=== PATIENT | male | born 1975 | race Caucasian/White ===

== ENCOUNTER 2020-02-09 12:21 | Emergency (ER) | payer OTHER, SELFPAY ==
[2020-02-09 12:31] VITALS: BP 134/98; PULSE 72; RESP 20; TEMP 36.6; O2SAT 100
--- NOTE | 2020-02-09 12:31 | ED.URI ---
HPI - URI/Sore Throat General Chief Complaint: Upper Respiratory Infection Stated Complaint: sore throat/cough Time Seen by Provider: 02/09/20 12:31 Source: patient and RN notes reviewed Mode of arrival: ambulatory Limitations: no limitations History of Present Illness HPI Narrative: 44-year-old male who presents to [facility] care with complaints of sore throat since Monday and cough which developed 2 days ago. Patient states that he just returned from [place] where he had been on vacation, no one else in household is ill. Patient states that his throat is very sore rates his pin as 10/10 describes pain as aching and burning.He states that his cough is non productive at this time, no acute sinus drainage or any ear pain voiced. Patient states that he has been taking Ibuprofen for his symptoms with minimal relief, no known fever chills or sweats. and cough MD elicited complaint: cough and sore throat Onset (ago): day(s) (6) Consistency: progressively worsening Severity: severe Pain scale (0-10): 10 Able to tolerate fluids by mouth: Yes Exacerbating factors: swallowing Relieving factors: nothing Associated symptoms: sore throat and cough Treatments prior to arrival: ibuprofen Related Data Home Medications Medication Instructions Recorded Confirmed clonazepam 1 mg tablet 1 mg PO DAILY 07/15/19 02/09/20 omeprazole 20 mg capsule,delayed 20 mg PO DAILY 07/15/19 02/09/20 release sertraline 100 mg tablet 100 mg PO DAILY 07/15/19 02/09/20 Allergies Allergy/AdvReac Type Severity Reaction Status Date / Time Penicillins Allergy Mild Verified 06/03/19 07:48 Review of Systems Review of Systems: Narrative: CONSTITUTIONAL: Denies fever, chills, or sweats. EYES: Denies visual changes, redness, or discharge. ENT: Denies rhinorrhea, congestion,positive sore throat, or otalgia. CARDIOVASCULAR: Denies chest pain, palpitations, or edema. RESPIRATORY: Positive cough no dyspnea. GASTROINTESTINAL: Denies abdominal pain, nausea, vomiting, or diarrhea. GENITOURINARY: Denies dysuria or hematuria. SKIN: Denies rash or itching. MUSCULOSKELETAL: Denies back pain, joint pain, or myalgia. NEUROLOGIC: Denies headache, numbness, or weakness. PSYCHIATRIC:positive anxiety or depression. All systems reviewed & are unremarkable except as noted in HPI and below PMFSH Past Medical History Medical History (Updated 02/09/20 @ 13:13 by Janae Pritchett NP) Essential hypertension Mixed hyperlipidemia Myocardial infarction Obesity Recurrent major depressive episodes, mild Sleep disorder Surgical History Surgical History (Updated 02/09/20 @ 13:14 by Janae Pritchett NP) History of elbow surgery History of hip replacement Family History Family History Sibling Hypertension Father Cerebrovascular accident Mother Family history of malignant neoplasm of ovary, Onset Age: 58 Other Diabetes mellitus Family history of arthritis Family history of heart disease in male family member before age 55 Family history of malignant neoplasm Social History Social History (Updated 02/09/20 @ 12:34 by Janae Pritchett NP) Smoking status: Never smoker Smokeless tobacco user: chewing tobacco Second hand tobacco smoke exposure: No Alcohol intake: current Living arrangements: with family Gender identity (if verbalized by the patient): Male Comments At time of signature, agree with nursing past medical, surgical, social and family history. There is no relevant family history pertinent to the presenting complaint Exam Narrative: Exam Narrative: GENERAL: Well-appearing, well-nourished, and in no acute distress. HEAD: Normocephalic, atraumatic. EYES: PERRLA and EOMI. ENT: Nares red with swollen turbinates, clear rhinorrhea no epistaxis. Mucous membranes moist.TM's with no redness, with good light reflex, throat red painful with no exudates but swollen tonsils NECK: Supple.mild lympha
== END 2020-02-09 13:12 | disposition home or self-care (01) ==
PROVIDERS: Emergency Provider Registered Nurse; PCP Internal Medicine
DX: J03.90 Acute tonsillitis, unspecified (principal); J06.9 Acute upper respiratory infection, unspecified; Z20.828 Contact with and (suspected) exposure to other viral communicable diseases; F17.220 Nicotine dependence, chewing tobacco, uncomplicated; I10 Essential (primary) hypertension; E78.2 Mixed hyperlipidemia; I25.2 Old myocardial infarction; F32.0 Major depressive disorder, single episode, mild
CPT/HCPCS: 87081; 87880; 99213; G0463

== ENCOUNTER 2021-06-28 10:28 | Emergency (ER) | payer OTHER, SELFPAY ==
[2021-06-28 10:41] VITALS: BP 142/87; PULSE 80; RESP 16; TEMP 36.3; O2SAT 99
--- NOTE | 2021-06-28 11:16 | ED.URI ---
HPI - URI/Sore Throat General Chief Complaint: Upper Respiratory Infection Stated Complaint: sinus/sore throat Time Seen by Provider: 06/28/21 11:15 Source: patient, RN notes reviewed and old records reviewed Mode of arrival: ambulatory Limitations: no limitations History of Present Illness HPI Narrative: 45-year-old male who presents to [facility] with complaints of having terrible sore throat for the past 5 days with some discomfort to his left ear. Patient states that he has tried multiple OTC medications including Tylenol cold and sinus, Ibuprofen, throat spray, and cough drops. Patient reports that he has not had any known fevers, chills or sweats or any body aches. Patient has not had COVID vaccinations. MD elicited complaint: sore throat, rhinorrhea and other (left ear pain) Pertinent past history: seasonal allergies and other (sinus problems) Onset (ago): day(s) (5) Consistency: progressively worsening Related Data Home Medications Medication Instructions Recorded Confirmed aspirin 81 mg tablet,delayed 81 mg PO DAILY 01/11/21 06/28/21 release metoprolol succinate 50 mg PO DAILY 06/28/21 06/28/21 Allergies Allergy/AdvReac Type Severity Reaction Status Date / Time Penicillins Allergy Mild RASH Verified 01/11/21 13:26 Review of Systems Review of Systems: CONSTITUTIONAL: Denies fever, chills, or sweats. EYES: Denies visual changes, redness, or discharge. ENT: Positive for rhinorrhea, congestion, sore throat, left otalgia. CARDIOVASCULAR: Denies chest pain, palpitations, or edema. RESPIRATORY: Denies acute cough or dyspnea. GASTROINTESTINAL: Denies abdominal pain, nausea, vomiting, or diarrhea. GENITOURINARY: Denies dysuria or hematuria. SKIN: Denies rash or itching. MUSCULOSKELETAL: Denies back pain, joint pain, or myalgia. NEUROLOGIC: Denies headache, numbness, or weakness. PSYCHIATRIC: Positive history of anxiety or depression. All systems reviewed & are unremarkable except as noted in HPI and below PMFSH Past Medical History Medical History (Updated 06/28/21 @ 11:39 by Janae Pritchett NP) Essential hypertension Mixed hyperlipidemia Myocardial infarction Obesity Recurrent major depressive episodes, mild Sleep disorder Surgical History Surgical History (Updated 06/28/21 @ 15:39 by Janae L. Shreyas, [employer]) History of elbow surgery History of hip replacement bilateral Family History Family History Sibling Hypertension Diabetes mellitus Depression Father Cerebrovascular accident Heart disease Mother Family history of malignant neoplasm of ovary, Onset Age: 58 Hypertension Other Family history of arthritis Family history of heart disease in male family member before age 55 Family history of malignant neoplasm Social History Social History Smoking status: Never smoker Smokeless tobacco user: chewing tobacco Second hand tobacco smoke exposure: No Alcohol intake: current Substance use: current Gender identity (if verbalized by the patient): Male Comments At time of signature, agree with nursing past medical, surgical, social and family history. There is no relevant family history pertinent to the presenting complaint Exam Narrative: GENERAL: Well-appearing, well-nourished, obese and in no acute distress. HEAD: Normocephalic, atraumatic. EYES: PERRLA and EOMI. ENT: Nares redness with clear rhinorrhea no epistaxis. Mucous membranes moist.Right TM normal with good light reflex, Left TM red and bulging. throat red, no lesions or exudates, tonsils red and swollen NECK: Supple. lymphadenopathy CHEST: Clear to auscultation. No respiratory distress.SAO2 99% on room air HEART: Regular rate and rhythm. No murmur heard. Normal peripheral pulses. ABDOMEN: Soft, nontender, nondistended, normal active bowel sounds. EXTREMITIES: Normal range of motion. No edema. SKIN:
== END 2021-06-28 11:42 | disposition home or self-care (01) ==
PROVIDERS: Emergency Provider Registered Nurse; PCP Internal Medicine
DX: J03.90 Acute tonsillitis, unspecified (principal); H65.02 Acute serous otitis media, left ear; I10 Essential (primary) hypertension; E78.2 Mixed hyperlipidemia; I25.2 Old myocardial infarction
CPT/HCPCS: 87081; 87880; 99213; G0463

== ENCOUNTER 2021-08-29 09:32 | Emergency (ER) | payer OTHER, SELFPAY ==
[2021-08-29 09:41] VITALS: BP 139/74; PULSE 68; RESP 16; TEMP 37; O2SAT 99
--- NOTE | 2021-08-29 09:58 | ED.URI ---
HPI - URI/Sore Throat General Chief Complaint: Upper Respiratory Infection Stated Complaint: Sinus Time Seen by Provider: 08/29/21 09:58 Source: patient, family, RN notes reviewed and old records reviewed Mode of arrival: ambulatory Limitations: no limitations History of Present Illness HPI Narrative: 45-year-old male presents to the [facility] with complaints of sinus issues since Monday, 4 days. States that he works from home. Denies fevers. States he just feels miserable. Related Data Home Medications Medication Instructions Recorded Confirmed aspirin 81 mg tablet,delayed 81 mg PO DAILY 01/11/21 06/28/21 release metoprolol succinate 50 mg PO DAILY 06/28/21 06/28/21 Allergies Allergy/AdvReac Type Severity Reaction Status Date / Time Penicillins Allergy Mild RASH Verified 01/11/21 13:26 Review of Systems Review of Systems: All systems reviewed & are unremarkable except as noted in HPI and below Constitutional: Constitutional: Reports no additional constitutional complaints, Denies chills, Denies fever(s) and Denies headache(s) Eyes: Eyes: Reports as per HPI Comments: Right eye redness and tearing ENT: Reports as per HPI, Denies vertigo, Denies dizziness, Denies headache(s), Reports nasal congestion and Reports sore throat Cardiovascular: Cardiovascular: Reports no additional cardiovascular complaints, Denies chest pain, Denies syncope, Denies rapid heart rate and Denies dyspnea Respiratory: Respiratory: Reports no additional respiratory complaints, Denies cough, Denies dyspnea and Denies wheezing Gastrointestinal: Gastrointestinal: Reports no additional gastrointestinal complaints, Denies abdominal pain, Denies diarrhea, Denies nausea and Denies vomiting Musculoskeletal: Musculoskeletal: Reports no additional musculoskeletal complaints and Denies numbness Integumentary/Breasts: Skin/Breast: Reports system reviewed and no additional complaints, except as docu Neurologic: Reports system reviewed and no additional complaints, except as documented, Denies vertigo, Denies dizziness, Denies syncope, Denies headache(s), Denies focal weakness and Denies numbness Psychiatric: Psychiatric: Reports no additional psychiatric complaints Allergic/Immunologic: Allergic/Immunologic: Reports no additional allergic/immunologic complaints and Denies wheezing PMFSH Past Medical History Medical History (Updated 08/29/21 @ 10:26 by Marly Prather) Essential hypertension Mixed hyperlipidemia Myocardial infarction Obesity Recurrent major depressive episodes, mild Sleep disorder Surgical History Surgical History History of elbow surgery History of hip replacement bilateral Family History Family History Sibling Hypertension Diabetes mellitus Depression Father Cerebrovascular accident Heart disease Mother Family history of malignant neoplasm of ovary, Onset Age: 58 Hypertension Other Family history of arthritis Family history of heart disease in male family member before age 55 Family history of malignant neoplasm Social History Social History Smoking status: Never smoker Smokeless tobacco user: chewing tobacco Second hand tobacco smoke exposure: No Alcohol intake: current Substance use: current Gender identity (if verbalized by the patient): Male Comments At the time of my signature, I reviewed and agree with the nursing past medical, surgical, social, and family history. There is no relevant family history pertinent to the patient complaint. Exam Const: General: cooperative, healthy appearing, no acute distress, well developed, alert and ill appearing acutely (mild) Nutritional Appearance: well nourished Orientation/consciousness: patient oriented x3 Limitations: no limitations HENMT: Head: normal to inspection Ears: external ears
[2021-08-30 18:01] LABS: SARS-CoV-2 RNA PCR Negative
== END 2021-08-29 10:39 | disposition home or self-care (01) ==
PROVIDERS: Emergency Provider Nurse Practitioner; PCP Internal Medicine
DX: K12.2 Cellulitis and abscess of mouth (principal); Z20.822 Contact with and (suspected) exposure to COVID-19; F17.220 Nicotine dependence, chewing tobacco, uncomplicated; I10 Essential (primary) hypertension; E78.2 Mixed hyperlipidemia; I25.2 Old myocardial infarction; E66.9 Obesity, unspecified; Z68.33 Body mass index [BMI] 33.0-33.9, adult; Z79.82 Long term (current) use of aspirin
CPT/HCPCS: 87081; 87804; 87880; 99213; C9803; G0463; U0003; U0005

== ENCOUNTER → 2021-10-26 00:25 | Outpatient (CLI) | payer OTHER, SELFPAY ==
[2021-10-26 11:28] LABS: SARS-CoV-2 RNA PCR Negative
== END ==
PROVIDERS: PCP Family Medicine; Visit Provider Internal Medicine Gastroenterology
DX: Z01.812 Encounter for preprocedural laboratory examination (principal); Z20.822 Contact with and (suspected) exposure to COVID-19
CPT/HCPCS: C9803; U0003; U0005

== ENCOUNTER 2021-10-29 01:17 | Day surgery (SDC) | payer OTHER, SELFPAY ==
[2021-10-18 15:32] VITALS: BMI 33.0
--- NOTE | 2021-10-29 07:23 | PM.HPGS ---
History of Present Illness History of Present Illness Consent: Risks, benefits, and alternatives have been discussed and questions answered. Patient agrees to proceed with procedure. Chief complaint: epigastric pain Narrative: Curt Avalos is a 45 year old male With postprandial discomfort in the upper left abdomen. He also has pain in his chest. This often happens after meal. He has in the past been to the emergency room with chest pain. On w 1 or 2 occasions the GI cocktail gave him a significant amount of relief. He has been on Prilosec but this has not helped significantly. he feels very bloated and distended after meal. He does belch some but not a lot. He does not use a CPAP machine. When he is distended, he feels discomfort along the left costal margin and laterally. Review of Systems Review of Systems: All systems reviewed & are unremarkable except as noted in HPI and below PMFSH Past Medical History Medical History Essential hypertension Mixed hyperlipidemia Myocardial infarction Obesity Recurrent major depressive episodes, mild Sleep disorder Surgical History Surgical History History of elbow surgery History of hip replacement bilateral Family History Family History Sibling Hypertension Diabetes mellitus Depression Father Cerebrovascular accident Heart disease Mother Family history of malignant neoplasm of ovary, Onset Age: 58 Hypertension Other Family history of arthritis Family history of heart disease in male family member before age 55 Family history of malignant neoplasm Social History Social History Smoking status: Never smoker Smokeless tobacco user: chewing tobacco Second hand tobacco smoke exposure: No Alcohol intake: current Drinks per week: 3 Substance use: current Living arrangements: with family Gender identity (if verbalized by the patient): Male Spiritual care concerns: No Meds Home Medications and Allergies Home Medications Medication Instructions Recorded Confirmed Type aspirin 81 mg tablet,delayed 81 mg PO DAILY 01/11/21 10/29/21 History release sertraline 100 mg tablet See Rx Instructions .ROUTE 09/02/21 10/29/21 Rx .COMPLEX #90 each atorvastatin 20 mg tablet 20 mg PO DAILY #90 tablet 09/03/21 10/29/21 Rx fenofibrate nanocrystallized 145 145 mg PO DAILY #90 tablet 09/03/21 10/29/21 Rx mg tablet metoprolol succinate 50 mg 50 mg PO DAILY #90 tablet 09/03/21 10/29/21 Rx tablet,extended release 24 hr Allergies Allergy/AdvReac Type Severity Reaction Status Date / Time Penicillins Allergy Mild RASH Verified 10/29/21 09:25 Exam Const: General: alert Orientation/consciousness: patient oriented x3 Resp: Auscultation: clear to auscultation bilaterally Cardio: Rhythm: regular rhythm GI: GI Palp: Yes Soft to palpation and No Tenderness to palpation present (GI) Neuro: General: patient oriented x3 Assessment and Plan Assessment and plan (1) Epigastric pain: Code(s): R10.13 - Epigastric pain Status: Acute Assessment and Plan: EGD with possible biopsy or dilatation or cautery.
[2021-10-29 09:26] VITALS: BP 154/90; PULSE 89; RESP 17; TEMP 36.6; O2SAT 98; BMI 33.7
[2021-10-29] MEDS: LACTATED RINGERS 1,000 ML 150 ML IV CONT (09:28)
--- NOTE | 2021-10-29 10:17 | WPDANESEPPF ---
Anes - Initial Pre Proc Eval Procedure: Operation Date: 10/29/21 10:30 Proposed Procedures p Esophagogastroduodenoscopy - Tommy Fletcher MD Date/Time: 10/29/21 10:17 Surgeon: Tommy Fletcher MD Pre Op Diagnosis: epigastric pain Patient Data Age: 45 Gender: M Height: 1.93 m Weight: 125.7 kg Last Vital Signs Temp 36.6 C 10/29/21 09:26 Pulse 89 10/29/21 09:26 Resp 17 10/29/21 09:26 BP 154/90 H 10/29/21 09:26 Pulse Ox 98 10/29/21 09:26 Allergies Allergy/AdvReac Type Severity Reaction Status Date / Time Penicillins Allergy Mild RASH Verified 10/29/21 09:25 Home Medications Medication Instructions Recorded Confirmed Type aspirin 81 mg tablet,delayed 81 mg PO DAILY 01/11/21 10/29/21 History release sertraline 100 mg tablet See Rx Instructions .ROUTE 09/02/21 10/29/21 Rx .COMPLEX #90 each atorvastatin 20 mg tablet 20 mg PO DAILY #90 tablet 09/03/21 10/29/21 Rx fenofibrate nanocrystallized 145 145 mg PO DAILY #90 tablet 09/03/21 10/29/21 Rx mg tablet metoprolol succinate 50 mg 50 mg PO DAILY #90 tablet 09/03/21 10/29/21 Rx tablet,extended release 24 hr Patient hx anesthesia problems: none Family hx anesthesia problems: none Results Review: All pre-operative results and documents have been reviewed as part of the pre-operative evaluation. [facility] Past Medical History Medical History Essential hypertension Mixed hyperlipidemia Myocardial infarction Obesity Recurrent major depressive episodes, mild Sleep disorder Surgical History Surgical History History of elbow surgery History of hip replacement bilateral Family History Family History Sibling Hypertension Diabetes mellitus Depression Father Cerebrovascular accident Heart disease Mother Family history of malignant neoplasm of ovary, Onset Age: 58 Hypertension Other Family history of arthritis Family history of heart disease in male family member before age 55 Family history of malignant neoplasm Social History Social History Smoking status: Never smoker Smokeless tobacco user: chewing tobacco Second hand tobacco smoke exposure: No Alcohol intake: current Drinks per week: 3 Substance use: current Living arrangements: with family Gender identity (if verbalized by the patient): Male Spiritual care concerns: No Anes - Eval Final PreProcedure Day of Procedure 10/29/21 10:17 Patient weight: obese Heart: regular rate and rhythm Lungs: clear to auscultation Airway: Mallampati scale class II Neurological: alert and oriented Last oral intake: >/= 8 hours ASA classification: III Emergent: no Anesthetic plan: proceed Anesthesia type and monitoring: general GIVS and standard monitoring Results Review: All pre-operative results and documents have been reviewed as part of the pre-operative evaluation. Informed Consent: The patient's anesthetic plan and its attendant risks and benefits were discussed with the patient/family/POA. Questions were solicited and answers provided to the satisfaction of the patient/family/POA.
[2021-10-29 11:12] VITALS: BP 112/62; PULSE 66; RESP 27; O2SAT 98
[2021-10-29 11:22] VITALS: BP 111/60; PULSE 58; RESP 22; O2SAT 99
[2021-10-29 11:32] VITALS: BP 101/55; PULSE 58; RESP 20; O2SAT 99
== END 2021-10-29 11:40 | disposition home or self-care (01) ==
PROVIDERS: PCP Family Medicine; Visit Provider Internal Medicine Gastroenterology
PROC: 0DJ08ZZ Inspection of Upper Intestinal Tract, Via Natural or Artificial Opening Endoscopic (ICD-10-PCS; CPT 43235; principal; 2021-10-29 10:30)
DX: R10.13 Epigastric pain (principal); K21.9 Gastro-esophageal reflux disease without esophagitis; I10 Essential (primary) hypertension; I25.2 Old myocardial infarction; E78.2 Mixed hyperlipidemia; G47.9 Sleep disorder, unspecified; F33.9 Major depressive disorder, recurrent, unspecified; Z96.643 Presence of artificial hip joint, bilateral
CPT/HCPCS: 43239; 87081; 88305; C9803; J2001; J2704; J7120; U0003; U0005

== ENCOUNTER 2021-11-17 10:38 | Outpatient (CLI) | payer OTHER, SELFPAY ==
--- NOTE | ~2021-11-17 | US_ITS ---
EXAMINATION: US abdomen complete DATE: 11/17/2021 11:28 INDICATION: Epigastric pain TECHNIQUE: Multiple grayscale and Doppler ultrasound images of the abdomen were obtained. COMPARISON: None available FINDINGS: Bowel gas obscures visualization of the pancreas. The visualized portions of the pancreas a re unremarkable. The liver demonstrates increased echogenicity, heterogenous echotexture, and decreas ed through transmission. No surface nodularity. Normal hepatopetal flow in the main portal vein. Ston es are present in the nondistended gallbladder. The normal common bile duct measures 4 mm. There was no sonographic De León sign. The visualized portions of the aorta and inferior vena cava are normal. The right kidney measures 12.1 x 6.2 x 7.4 cm. The left kidney measures 12.0 x 5.6 x 6.5 cm. The kidn eys demonstrate normal parenchymal echogenicity. There is no hydronephrosis. The spleen is normal in appearance and measures 11.9 cm. IMPRESSION: 1. Cholelithiasis without evidence of cholecystitis. 2. Diffuse hepatic steatosis. Reviewed, dictated and finalized at location F.
== END 2021-11-17 10:39 | disposition home or self-care (01) ==
LOC: ANHIMG 10:40
PROVIDERS: PCP Family Medicine; Visit Provider Internal Medicine Gastroenterology
DX: R10.13 Epigastric pain (principal); K80.20 Calculus of gallbladder without cholecystitis without obstruction; K76.0 Fatty (change of) liver, not elsewhere classified
CPT/HCPCS: 76700

== ENCOUNTER 2021-11-24 01:14 | Emergency (ER) | payer OTHER, SELFPAY ==
[2021-11-24] VITALS (106 sets, daily range): BP systolic 106–179; BP diastolic 59–92; PULSE 49–101; RESP 8–22; TEMP 35.9; O2SAT 95–100
--- NOTE | ~2021-11-24 | CT_ITS ---
EXAMINATION: Janae Negrete DATE: 11/24/2021 02:21 INDICATION: Shortness of breath. Chest pain. TECHNIQUE: Computed tomographic angiography (CTA) of the chest, abdomen, and pelvis was performed wit h 100 mL Omnipaque-350 intravenous contrast. Automated exposure control and iterative reconstruction technique were employed. The dose-length product was 1931.32 mGy-cm. Maximum intensity projection 3D- reconstructions of the aorta and other arteries were constructed by the technologist on a separate wo rkstation. COMPARISON: CT abdomen and pelvis 05/25/2016 FINDINGS: CHEST CTA: The lungs demonstrated mild atelectasis. No pleural effusion. The heart size is normal. No pericardia l effusion. Thoracic aorta is normal in caliber. No dissection. There is no pulmonary embolus. There is mild thoracic spondylosis. ABDOMEN AND PELVIS CTA: There is diffuse hepatic steatosis. There are gallstones in the gallbladder, which is normal in size. The spleen, pancreas, adrenal glands, and kidneys are normal. There is a left inguinal hernia contai robbin fat. The appendix is normal. There are no dilated loops of bowel. There are no pathologically en larged lymph nodes. There is no significant stenosis of celiac axis, superior mesenteric artery, the renal arteries, or inferior mesenteric artery. There is no aortic aneurysm or dissection. The pelvic arteries are normal. There are bilateral total hip arthroplasties. There is mild lumbar spondylosis. IMPRESSION: 1. No aortic aneurysm or dissection. 2. Cholelithiasis. No evidence of acute cholecystitis. 3. Small left inguinal hernia containing fat. Reviewed, dictated and finalized at location B.
--- NOTE | 2021-11-24 01:17 | ED.CHESTPAIN ---
HPI - Chest Pain General Chief Complaint: Chest Pain <Janae Negrete MD - Last Filed: 11/24/21 06:37> Stated Complaint: chest pain <Janae Negrete MD - Last Filed: 11/24/21 06:37> Time Seen by Provider: 11/24/21 01:16 <Janae Negrete MD - Last Filed: 11/24/21 06:37> Source: patient and family <Janae Negrete MD - Last Filed: 11/24/21 06:37> Mode of arrival: ambulatory <Janae Negrete MD - Last Filed: 11/24/21 06:37> Limitations: no limitations <Janae Negrete MD - Last Filed: 11/24/21 06:37> History of Present Illness HPI narrative: The patient is a 46 yo male with a history of non erosive gastritis, HTN, hyperlipidemia, presenting to the ER for evaluation of chest and abdominal pain. Pt states he awakened suddenly this morning with severe right upper quadrant and epigastric abdominal pain, and [place] like he was dying. Pt reports severe, sharp pain without radiation to the neck or back. He did report some jaw discomfort on both sides. He reported feeling clammy with nausea. Pt denied pain as severe as this in the past, but has been experiencing severe post prandial abdominal pain for several months and had an essentially reassuring EGD with Dr. Fletcher and is set to see Dr. Chatman tomorrow; pt states he did have gallstones on his gallbladder US. Pt reports that he feels horrible all over. He denies any recent history of known COVID. Denies pleuritic pain, cough or hemoptysis. He denies recent long car or air travel. Pt denies calf swelling or leg pain. Pt reports decreased oral intake due to pain after eating. He did eat waffles tonight at 11 pm and had some fish at lunch. <Janae Negrete MD - Last Filed: 11/24/21 06:37> Related Data Home Medications: Home Medications Medication Instructions Recorded Confirmed aspirin 81 mg tablet,delayed 81 mg PO DAILY 01/11/21 10/29/21 release fenofibrate nanocrystallized 145 145 mg PO DAILY 11/18/21 mg tablet omeprazole 20 mg capsule,delayed 20 mg PO DAILY 11/18/21 release <Janae Negrete MD - Last Filed: 11/24/21 06:37> Allergies/Adverse Reactions: Allergies Allergy/AdvReac Type Severity Reaction Status Date / Time Penicillins Allergy Mild RASH Verified 11/24/21 01:20 <Janae Negrete MD - Last Filed: 11/24/21 06:37> Review of Systems Review of Systems: CONSTITUTIONAL: Denies fever, chills, or sweats. EYES: Denies visual changes, redness, or discharge. ENT: Denies rhinorrhea, congestion, sore throat, or otalgia. CARDIOVASCULAR: Reports chest pain without palpitations or lower leg edema RESPIRATORY: Denies cough, reports shortness of breath with the pain but denies current shortness of breath GASTROINTESTINAL: Reports abdominal pain, nausea, vomiting GENITOURINARY: Denies dysuria or hematuria. SKIN: Denies rash or itching. MUSCULOSKELETAL: Denies back pain, joint pain, or myalgia. NEUROLOGIC: Denies headache, numbness, or weakness. <Janae Ngerete MD - Last Filed: 11/24/21 06:37> [facility] Past Medical History Medical History: Medical History Essential hypertension Mixed hyperlipidemia Obesity Recurrent major depressive episodes, mild Sleep disorder <Janae Negrete MD - Last Filed: 11/24/21 06:37> Surgical History Surgical History: Surgical History History of elbow surgery bilateral History of esophagogastroduodenoscopy (EGD) 10/29/21 findings of nonerosive reflux disease History of hip replacement bilateral <Janae Negrete MD - Last Filed: 11/24/21 06:37> Family History Family History: Family History (Updated 11/24/21 @ 09:33 by ASRTHAK Maldonado) Sibling Hypertension Diabetes mellitus Depression Father Cerebrovascular accident Heart disease Hypertension Mother Family history of malignant neoplasm of ovary, Onset Age: 58 Hyp
--- NOTE | 2021-11-24 01:18 | ECG_ITS ---
Measurements Intervals [place] Rate: 85 P: 33 AK: 190 QRS: -16 QRSD: 88 T: 111 QT: 380 QTc: 452 Interpretive Statements SINUS RHYTHM CANNOT RULE OUT SEPTAL INFARCT, AGE INDETERMINATE BORDERLINE ST-T WAVE ABNORMALITY- ANTEROLAT/HIGH LAT LEADS ABNORMAL ECG Electronically Signed On 11-24-2021 7:12:14 CDT by Arturo Klein D.O.
[2021-11-24 01:30] LABS: Basophils Percent Auto 0.3 % (0.2-1.2); Eosinophils Absolute Auto 0.2 K/mm3 (0-0.3); Eosinophils Percent Auto 1.6 % (0-4.4); Hematocrit 43.1 % (42.0-52.0); Hemoglobin 13.6 g/dL (14.0-18.0); Immature Granulocyte Absolute 0.04 K/mm3 (0.00-0.031); Immature Granulocyte Percent A 0.4 % (0-0.5); Lymphocytes Absolute Auto 4.33 K/mm3 (0.9-3.2); Lymphocytes Percent Auto 45.9 % (18.3-44.2); Mean Corpuscular HGB Conc 31.6 g/dl (32-36); Mean Corpuscular Hemoglobin 26.8 pg (26-34); Mean Platelet Volume 10.7 fl (7.4-10.4); Monocytes Absolute Auto 0.7 K/mm3 (0.1-0.6); Monocytes Percent Auto 6.9 % (2.6-8.5); Neutrophils Absolute Auto 4.2 K/mm3 (1.3-6.7); Neutrophils Percent Auto 44.9 % (45.5-73.1); Platelet Count Result 261 k/mm3 (150-375); Red Blood Count 5.07 M/mm3 (4.6-6.20); Red Cell Distribution Width 14.1 % (11.5-14.5); White Blood Count 9.4 K/mm3 (4.5-10.0)
[2021-11-24 01:40] LABS: Alanine Aminotransferase 34 U/L (4-50); Albumin Level 4.8 g/dL (3.5-5.1); Alkaline Phosphatase 42 U/L (38-126); Anion Gap 11 mmol/L (8-16); Aspartate Amino Transferase 33 U/L (17-59); Bilirubin,Total 0.4 mg/dL (0.2-1.3); Blood Urea Nitrogen 14 mg/dL (9-20); Calcium 9.1 mg/dL (8.4-10.2); Carbon Dioxide 23 mmol/L (22-30); Chloride 105 mmol/L (98-107); Estimated CRCL calculation 103 ml/min; Estimated Glomerular Filt Rate > 60; Glucose 155 mg/dL (65-110); Lipase 180 U/L (23-300); Potassium 3.1 mmol/L (3.4-5.0); Sodium 139 mmol/L (137-145)
[2021-11-24 01:41] LABS: INR 1.1; Partial Thromboplastin Time 29.7 SECONDS (22.3-36.8)
[2021-11-24] MEDS: ONDANSETRON INJ 4 MG/2 ML VIAL IV PUSH (01:50)
[2021-11-24 01:51] LABS: Troponin I < 0.012 ng/mL (0.000-0.034)
[2021-11-24] MEDS: ASPIRIN 81 MG CHEWABLE TABLET 324 MG PO (01:51)
[2021-11-24] MEDS: NITROGLYCERIN SL 0.4 MG TABLET SUBLINGUAL ×2 (01:55→02:33)
[2021-11-24] MEDS: MORPHINE SULFATE (*CRX) 2 MG/ML INJ IV PUSH (02:37)
[2021-11-24 05:01] LABS: Troponin I < 0.012 ng/mL (0.000-0.034)
[2021-11-24] MEDS: METOCLOPRAMIDE HCL INJ 10 MG/2 ML VIAL 5 MG IV PUSH (05:39)
[2021-11-24] MEDS: MORPHINE SULFATE (*CRX) 4 MG/ML INJ IV PUSH (05:39)
[2021-11-24] MEDS: KCL 20 MEQ/SW 100 ML 100 ML 50 MEQ IVPB (06:30)
[2021-11-24] MEDS: LACTATED RINGERS 1,000 ML 150 ML IV CONT (06:30)
--- NOTE | 2021-11-24 08:25 | PC.NURSE ---
pt resting quietly on stretcher with at bedside. waiting surgeons eval.
[2021-11-24 08:32] LABS: Troponin I < 0.012 ng/mL (0.000-0.034)
--- NOTE | 2021-11-24 09:20 | PM.CNGS ---
Assessment and Plan Assessment and plan (1) Cholelithiasis: Code(s): K80.20 - Calculus of gallbladder without cholecystitis without obstruction Status: Acute Assessment and Plan: CTA and recent ultrasound reviewed and discussed with the patient in detail. He has evidence of cholelithiasis with possible chronic cholecystitis or gallbladder dysfunction. He had an acute attack last night that does appear to be related to his gallbladder. His symptoms have resolved and his abdominal exam is benign this morning. WBC count and LFTs normal. I discussed treatment options with the patient thoroughly. The patient wishes to be discharged home and try to follow a strict low fat diet to prevent attacks or future complications with his gallstones and schedule surgery as an outpatient next week. We would recommend a laparoscopic cholecystectomy, possible open, by Dr. Chatman under general anesthesia. Description of the procedure, risks, benefits, expected outcomes, and expected recovery were discussed with the patient in detail. I discussed with the patient that there is still a possibility that some of his other more chronic symptoms of bloating, LUQ abdominal pain, diarrhea, and nausea following meals may persist even after the cholecystectomy. I recommended he be re-evaluated by GI if they do persist and may need to consider a colonoscopy or further testing for other possible etiologies of his symptoms. The patient understands and agrees. Will allow the patient to go home. We gave him a cholecystectomy handout with low fat diet instructions. Will plan to schedule him as an outpatient in the next 1-2 weeks according to the OR schedule. (2) Biliary colic: Code(s): K80.50 - Calculus of bile duct without cholangitis or cholecystitis without obstruction Status: Acute (3) GERD (gastroesophageal reflux disease): Qualifiers: Esophagitis presence: esophagitis presence not specified Qualified Code(s): K21.9 - Gastro-esophageal reflux disease without esophagitis Code(s): K21.9 - Gastro-esophageal reflux disease without esophagitis Status: Acute Assessment and Plan: Recent EGD showing NERD - continue PPI per GI. (4) Obesity (BMI 30-39.9): Code(s): E66.9 - Obesity, unspecified Status: Acute Assessment and Plan: Follow-up with PCP for weight loss. (5) Essential hypertension: Code(s): I10 - Essential (primary) hypertension Status: Acute Additional Plan I have discussed the patient's case and plan of care with Dr. Chatman. Thank you for allowing us to see the patient in consultation. History of Present Illness Consult details Consult date: 11/24/21 Reason for consult: gallstones Requesting physician: Janae Negrete MD Narrative: This is a 46-year-old male who presented to the ER with complaints of chest pain and abdominal pain. He has been dealing with postprandial epigastric and LUQ pain for the past year. He reports bloating and nausea almost immediately after eating meals. His symptoms have become more frequent over the past few months, and he now feels this happens after every meal regardless of what he eats. He has been seen by his PCP and started on Prilosec. He was referred to GI and underwent an EGD on 10/29/21 that showed non-erosive reflux disease. GI ordered an abdominal ultrasound that showed cholelithiasis without any evidence of cholecystitis. He has been trying to follow a low fat diet and feels this has not helped his symptoms. He was referred to our service as an outpatient and was actually scheduled to see Dr. Chatman in the office this morning. Although, yesterday for lunch, he ate fish sticks and almost immediately began having bloating and generalized abdominal pain. He then ate waffles with syrup around 8pm last night before bed. He went to bed feeling better, but woke up about 2 hours later with severe chest pain and abdominal pain. He reports the pain was so severe it
== END 2021-11-24 09:59 | disposition home or self-care (01) ==
PROVIDERS: Emergency Medicine; Emergency Provider Emergency Medicine; PCP Family Medicine
DX: K80.20 Calculus of gallbladder without cholecystitis without obstruction (principal); K21.9 Gastro-esophageal reflux disease without esophagitis; I10 Essential (primary) hypertension; E78.2 Mixed hyperlipidemia; E66.9 Obesity, unspecified; Z68.33 Body mass index [BMI] 33.0-33.9, adult; G47.9 Sleep disorder, unspecified; Z79.82 Long term (current) use of aspirin; Z96.643 Presence of artificial hip joint, bilateral; F17.220 Nicotine dependence, chewing tobacco, uncomplicated; K40.90 Unilateral inguinal hernia, without obstruction or gangrene, not specified as recurrent; R94.31 Abnormal electrocardiogram [ECG] [EKG]
CPT/HCPCS: 36415; 71275; 74174; 80053; 83690; 84484; 85025; 85610; 85730; 93005; 96361; 96365; 96366; 96375; 96376; 99284; A9270; J2270; J2405; J2765; J3480; J7120; Q9967

== ENCOUNTER 2021-11-26 13:37 | Outpatient (CLI) | payer OTHER, SELFPAY ==
[2021-11-26 14:08] LABS: Amylase 63 U/L (30-110)
== END 2021-11-26 13:38 | disposition home or self-care (01) ==
PROVIDERS: PCP Family Medicine; Visit Provider Surgery
DX: Z01.818 Encounter for other preprocedural examination (principal); K80.20 Calculus of gallbladder without cholecystitis without obstruction
CPT/HCPCS: 36415; 82150; 86850; 86900; 86901

== ENCOUNTER 2021-12-02 01:36 | Day surgery (SDC) | payer OTHER, SELFPAY ==
--- NOTE | 2021-11-25 10:11 | SUR.PREOP ---
Addendum entered by Chantell Helms RN 11/25/21 10:25: INSTRUCTED TO HIBICLENS SHOWER MORNING OF SURGERY Original Note: Report to the Outpatient Waiting Room, entrance under the [place] [facility] located off [facility], at time 1130 on date 12/02/21. OR Time: 1330 (1:30PM). - You and your visitor will be asked a series of questions to screen for COVID 19 for your protection. - Only one visitor is allowed at this time. - The patient visitor is requested to leave or wait in car when not with patient. - A mask is required within the hospital. Patients may have clear liquids (water, carbonated beverages, clear teas, apple juice) until 3 hours prior to surgery with a maximum of 20 ounces. - NO CLEAR LIQUIDS AFTER 1030 - No food from midnight until time of surgery - Infants may have breast milk until 4 hours before surgery, formula 6 hours prior to surgery. - Children will be allowed to drink immediately following surgery. If applicable, please bring a bottle or sippy cup to assist with drinking. Juice, water, soda, and popsicles are readily available. For infants on formula, please bring formula the day of surgery. Pacifiers are allowed. Take the following medications with a SIP of water the morning of surgery: METOPROLOL, SERTRALINE Please no make-up, nail estonian, hairspray, perfume, deodorant, or body powder the day of surgery. No jewelry (including any body piercings) or valuables the day of surgery, leave them at home. Please take a shower or bath the night before, or the morning of, surgery with an antibacterial soap. Wear comfortable, loose fitting clothing. Children are encouraged to wear pajamas. - Jewelry must be removed prior to entering the operating room. Rings and piercings that are not removed may be cut off. - The hospital will not accept responsibility for valuables. - Please leave all valuables, including medications, at home the day of surgery. If you are going home after surgery, a licensed water truck driver must drive you home. - NO public transportation without another adult. - We recommend that an adult stay with you for 24 hours following discharge. - We also recommend that you do not drive, make important decision, drink alcoholic beverages, or take any drugs that were not prescribed by your health care provider for at least 24 hours after your discharge time. For Pediatric surgeries, we recommend two adults accompany the child home (only one inside the building at this time). Follow any additional instructions given to you from your surgeon. If you or anyone in your household have experienced Covid symptoms in the past week, please notify your surgeon or the nurse liaison at the phone number below for possible testing. Telephone instructions given to RAE LUBIN and asked if any additional questions and then verbalized understanding. Patient advised to call surgeon office or pre surgery nurse liaison [phone] if any additional questions.
[2021-11-25 10:19] VITALS: BMI 33.7
[2021-12-02] VITALS (11 sets, daily range): BP systolic 110–153; BP diastolic 70–84; PULSE 56–80; RESP 13–19; TEMP 36.2–36.5; O2SAT 86–99
--- NOTE | 2021-12-02 11:52 | WPDHPUPDATE1 ---
History and Physical Update Update Date/Time: 12/02/21 11:52 History and Physical has been reviewed, including an updated exam of the patient. There are NO changes in the patient's condition. Risks, benefits, and alternatives have been discussed and questions answered. Patient agrees to proceed with procedure.
[2021-12-02] MEDS: ACETAMINOPHEN 500 MG TABLET 1000 MG PO (12:08)
[2021-12-02] MEDS: KETOROLAC 15 MG/ML VIAL (*BKC) IV PUSH (12:36)
[2021-12-02] MEDS: LACTATED RINGERS 1,000 ML 30 ML IV CONT ×2 (12:39→13:59)
--- NOTE | 2021-12-02 12:40 | WPDANESEPPF ---
Anes - Initial Pre Proc Eval Procedure: Operation Date: 12/02/21 13:30 Proposed Procedures p Laparoscopic Cholecystectomy - Leslie Chatman MD Date/Time: 12/02/21 12:40 Surgeon: Leslie Chatman MD Pre Op Diagnosis: cholelithiasis Patient Data Age: 46 Gender: M Height: 1.91 m Weight: 122.5 kg Allergies Allergy/AdvReac Type Severity Reaction Status Date / Time Penicillins Allergy Mild RASH Verified 12/02/21 12:00 Home Medications Medication Instructions Recorded Confirmed Type aspirin 81 mg tablet,delayed 81 mg PO DAILY 01/11/21 12/02/21 History release sertraline 100 mg tablet See Rx Instructions .ROUTE 09/02/21 12/02/21 Rx .COMPLEX #90 each fenofibrate nanocrystallized 145 145 mg PO DAILY #90 tablet 09/03/21 12/02/21 Rx mg tablet metoprolol succinate 50 mg 50 mg PO DAILY #90 tablet 09/03/21 12/02/21 Rx tablet,extended release 24 hr atorvastatin 20 mg tablet 20 mg PO DAILY #90 tablet 11/02/21 12/02/21 Rx omeprazole 20 mg capsule,delayed 20 mg PO DAILY 11/18/21 12/02/21 History release multivitamin 1 tablet PO DAILY 12/02/21 12/02/21 History Patient hx anesthesia problems: none Family hx anesthesia problems: none Results Review: All pre-operative results and documents have been reviewed as part of the pre-operative evaluation. [facility] Past Medical History Medical History Anxiety Essential hypertension GERD (gastroesophageal reflux disease) Mixed hyperlipidemia Obesity Recurrent major depressive episodes, mild Sleep disorder Surgical History Surgical History History of elbow surgery bilateral History of esophagogastroduodenoscopy (EGD) 10/29/21 findings of nonerosive reflux disease History of hip replacement bilateral Family History Family History Sibling Hypertension Diabetes mellitus Depression Father Cerebrovascular accident Heart disease Hypertension Mother Family history of malignant neoplasm of ovary, Onset Age: 58 Hypertension Gallbladder disease Other Family history of arthritis Family history of heart disease in male family member before age 55 Family history of malignant neoplasm Social History Social History Smoking status: Never smoker Smokeless tobacco user: chewing tobacco Second hand tobacco smoke exposure: No Additional smoking assessment comments: Chews tobacco daily with nicotine Alcohol intake: current Drinks per week: 3 Substance use type: does not use Living arrangements: with family Additional living arrangements comments: Lives with 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 Informed Consent: The patient's anesthetic plan and its attendant risks and benefits were discussed with the patient/family/POA. Questions were solicited and answers provided to the satisfaction of the patient/family/POA.
[2021-12-02] MEDS: ceFAZolin 3 GM/D5W 100 ML 100 ML IVPB (13:10)
[2021-12-02] MEDS: LIDO 1%/EPINEPHRINE/PF 1:200,000 30 ML VIAL XX (13:36)
[2021-12-02] MEDS: ONDANSETRON INJ 4 MG/2 ML VIAL IV PUSH (14:10)
--- NOTE | 2021-12-02 14:24 | W.PM.PROC2 ---
Procedure Note - Detailed Date of Procedure 12/02/21 Pre-op Diagnosis chronic cholecystitis, cholelithiasis Post-op Diagnosis Same Procedure Performed Laparoscopic cholecystectomy Surgeon Leslie Chatman MD Anesthesia General Indications 46 y/o M c chronic cholecystitis, cholelithiasis Findings chronic cholecystitis Description of Procedure The patient was taken to the operating room placed in the supine position. After adequate induction of general anesthesia, the patient was prepped and draped in normal sterile fashion. A time-out was then performed to verify the patient's identity as well as the procedure being performed. I then made a 5 mm incision in the infraumbilical region. Through this, a Veress needle was placed into the peritoneal cavity and CO2 gas was then insufflated. After adequate pneumoperitoneum was achieved, the Veress needle was removed and a 5 mm optiview trocar was placed through this incision under direct visualization. I then placed the laparoscope through this trocar site and under direct visualization placed a further 12 mm subxiphoid port as well as 2 additional 5 mm ports in the right upper abdomen. The gallbladder was then identified and was noted to be moderately inflamed and distended. I was able to place a grasper at the dome of the gallbladder and this was retracted anterior and cephalad up over the liver. A 2nd retractor was then placed at the infundibulum and retracted laterally, this allowed visualization of the triangle of Calot. I then was able to visualize the cystic duct in its entirety from its proximal insertion into the gallbladder, to its distal junction with the common hepatic/common bile duct junction. At this point, I carefully skeletonized the proximal cystic duct with the [place] dissector. I then clipped and transected the proximal cystic duct. Next I visualized the cystic artery. Again the artery was skeletonized, clipped, and transected. I then used the Bovie cautery to take down the peritoneal attachments of the gallbladder off the liver bed. Once the gallbladder specimen was completely detached, an endo-pouch was placed through the 12 mm port site. I then placed the gallbladder specimen into the Endo pouch and removed the endo-pouch from the 12 mm port site. The specimen will now be sent to pathology for further review. I then copiously irrigated the right upper quadrant. Some mild oozing was noted in the liver bed and this was controlled with the bovie cautery. Hemostasis was noted in the liver bed, the clips were noted to be in good position on both the cystic duct stump and the cystic artery stump. No other pathology was noted in the right upper quadrant. I then moved the laparoscope to the subxiphoid port. No iatrogenic injury or other pathology was noted in the lower abdomen. I then closed the 12 mm trocar site under direct visualization using the Oren cone and 0 Vicryl suture. At this point, the abdomen was desufflated and all ports removed. All port sites were then closed with 4.O Monocryl subcuticular sutures. Dermabond was placed on each incision. The patient tolerated the procedure well, was extubated in the operating room postoperative and will be transferred to the recovery room in stable condition Estimated Blood Loss 10 Drains No Packing No Pathology Yes Complications No immediate complications Condition Stable Disposition PACU
[2021-12-02] MEDS: fentaNYL CITRATE INJ (*CRX) 100 MCG/2 ML VIAL 25 MCG IV PUSH ×3 (14:25→15:45)
[2021-12-02] MEDS: diphenhydrAMINE HCl INJ 50 MG/ML VIAL 25 MG IV PUSH (14:55)
[2021-12-02] MEDS: SCOPOLAMINE 1.5 MG PATCH TRANSDERM (14:58)
[2021-12-02] MEDS: oxyCODONE HCL (*CRX) 5 MG TAB IR PO (15:41)
== END 2021-12-02 16:20 | disposition home or self-care (01) ==
PROVIDERS: PCP Family Medicine; Visit Provider Surgery
PROC: 0FT44ZZ Resection of Gallbladder, Percutaneous Endoscopic Approach (ICD-10-PCS; CPT 47562; principal; 2021-12-02 13:30)
DX: K80.10 Calculus of gallbladder with chronic cholecystitis without obstruction (principal); K21.9 Gastro-esophageal reflux disease without esophagitis; I10 Essential (primary) hypertension; R10.13 Epigastric pain; R10.12 Left upper quadrant pain; E78.2 Mixed hyperlipidemia; F32.9 Major depressive disorder, single episode, unspecified; G47.9 Sleep disorder, unspecified; F17.220 Nicotine dependence, chewing tobacco, uncomplicated; Z79.82 Long term (current) use of aspirin; F41.9 Anxiety disorder, unspecified; E66.9 Obesity, unspecified; Z68.33 Body mass index [BMI] 33.0-33.9, adult
CPT/HCPCS: 47562; 36415; 82150; 86850; 86900; 86901; 88304; A9270; J0690; J1100; J1200; J1885; J2250; J2405; J2704; J2710; J3010; J7030; J7120

== ENCOUNTER 2022-06-02 15:04 | Outpatient (CLI) | payer OTHER, SELFPAY ==
[2022-06-02 16:48] LABS: SARS-CoV-2 RNA PCR Negative
== END 2022-06-02 15:05 | disposition home or self-care (01) ==
LOC: ANHLAB 15:05
PROVIDERS: PCP Family Medicine; Visit Provider Family Medicine
DX: R68.89 Other general symptoms and signs (principal); Z20.822 Contact with and (suspected) exposure to COVID-19
CPT/HCPCS: U0003; U0005

== ENCOUNTER 2022-06-03 15:31 | Outpatient (CLI) | payer OTHER, SELFPAY ==
[2022-06-03 18:19] LABS: Kit Draw Collected
== END 2022-06-03 15:32 | disposition home or self-care (01) ==
LOC: ANHGOSHLAB 15:34
PROVIDERS: PCP Family Medicine; Visit Provider Nurse Practitioner Family
DX: R53.81 Other malaise (principal); R53.83 Other fatigue
CPT/HCPCS: 36415

== ENCOUNTER 2022-06-07 10:19 | Outpatient (CLI) | payer OTHER, SELFPAY ==
[2022-06-07 10:47] LABS: Basophils Percent Auto 0.2 % (0.2-1.2); Eosinophils Absolute Auto 0.1 K/mm3 (0-0.3); Eosinophils Percent Auto 2.3 % (0-4.4); Hematocrit 43.7 % (42.0-52.0); Hemoglobin 14.4 g/dL (14.0-18.0); Immature Granulocyte Absolute 0.01 K/mm3 (0.00-0.031); Immature Granulocyte Percent A 0.2 % (0-0.5); Lymphocytes Absolute Auto 2.02 K/mm3 (0.9-3.2); Lymphocytes Percent Auto 32.8 % (18.3-44.2); Mean Corpuscular Hemoglobin 27.4 pg (26-34); Mean Corpuscular Volume 83.1 fl (80-100); Mean Platelet Volume 10.7 fl (7.4-10.4); Monocytes Absolute Auto 0.5 K/mm3 (0.1-0.6); Neutrophils Absolute Auto 3.5 K/mm3 (1.3-6.7); Neutrophils Percent Auto 56.5 % (45.5-73.1); Platelet Count Result 227 k/mm3 (150-375); Red Blood Count 5.26 M/mm3 (4.6-6.20); Red Cell Distribution Width 14.4 % (11.5-14.5); White Blood Count 6.2 K/mm3 (4.5-10.0)
[2022-06-07 11:09] LABS: Alanine Aminotransferase 34 U/L (6-50); Albumin Level 4.7 g/dL (3.5-5.1); Alkaline Phosphatase 38 U/L (38-126); Anion Gap 15 mmol/L (8-16); Aspartate Amino Transferase 33 U/L (17-59); Bilirubin,Total 0.7 mg/dL (0.2-1.3); Blood Urea Nitrogen 17 mg/dL (9-20); Calcium 8.6 mg/dL (8.4-10.2); Carbon Dioxide 23 mmol/L (22-30); Chloride 103 mmol/L (98-107); Estimated Glomerular Filt Rate > 60; Glucose 95 mg/dL (65-110); Potassium 3.8 mmol/L (3.4-5.0); Sodium 141 mmol/L (137-145)
== END 2022-06-07 10:20 | disposition home or self-care (01) ==
LOC: ANHLAB 10:21
PROVIDERS: PCP Family Medicine; Visit Provider Family Medicine
DX: R53.81 Other malaise (principal); R53.83 Other fatigue
CPT/HCPCS: 36415; 80053; 85025

== ENCOUNTER 2022-06-13 13:26 | Outpatient (CLI) | payer OTHER, SELFPAY ==
--- NOTE | ~2022-06-13 | CT_ITS ---
EXAMINATION: CT abdomen pelvis wo con DATE: 06/13/2022 13:41 INDICATION: Chest pain. Midline abdominal pain. Shortness of breath. TECHNIQUE: Computed tomography (CT) of the abdomen and pelvis was performed without intravenous contr ast. The dose-length product was 1425.64 mGy-cm. Automated exposure control and iterative reconstruct ion technique were employed. COMPARISON: CT dated 11/24/2021. FINDINGS: Lung bases are unremarkable. Heart size is normal. No significant vascular abnormality. No lymphadenopathy. There are cholecystectomy clips. There is fatty infiltration of the liver. The splee n, pancreas, adrenal glands and kidneys are unremarkable. Nonobstructive bowel gas pattern. Normal ap pendix. Small fat-containing umbilical hernia. Small fat-containing left inguinal hernia. No free air or free fluid. There are bilateral hip arthroplasty. Mild lumbar spondylosis. IMPRESSION: 1. No acute abdominal abnormality. 2: Hepatic steatosis. 3: Fat-containing umbilical and left inguinal hernias. Reviewed, dictated and finalized at location B. TER
== END 2022-06-13 13:27 | disposition home or self-care (01) ==
LOC: ANHIMG 13:30
PROVIDERS: PCP Family Medicine; Visit Provider Nurse Practitioner Family
DX: R10.2 Pelvic and perineal pain (principal); K76.0 Fatty (change of) liver, not elsewhere classified; K44.9 Diaphragmatic hernia without obstruction or gangrene; K40.90 Unilateral inguinal hernia, without obstruction or gangrene, not specified as recurrent; K42.9 Umbilical hernia without obstruction or gangrene
CPT/HCPCS: 74176

== ENCOUNTER 2022-09-01 09:00 | Outpatient (NON) | payer OTHER, SELFPAY | END 2022-09-01 09:01 | disposition home or self-care (01) | LOC: ANHLAB 09-02 09:06 | PROVIDERS: PCP Family Medicine; Visit Provider Internal Medicine Gastroenterology | DX: R19.4 Change in bowel habit (principal) | CPT/HCPCS: 88305 ==

== ENCOUNTER 2022-09-01 10:57 | Day surgery (SDC) | payer OTHER, SELFPAY ==
[2022-08-17 14:28] VITALS: BMI 32.3
[2022-08-18 15:01] VITALS: BMI 31.9
--- NOTE | 2022-08-31 14:41 | PM.HPGS ---
History of Present Illness History of Present Illness Consent: Risks, benefits, and alternatives have been discussed and questions answered. Patient agrees to proceed with procedure. Chief complaint: Change in Bowel Habits Narrative: Curt Avalos is a 46 year old male who has had a change in his bowel habits.? He had a cholecystectomy last november.? He has had days of very loose stools.? Then he may not have a bowel movement for a day or so and then he will feel constipated.? he has also experienced some left lower quadrant discomfort. Review of Systems Review of Systems: All systems reviewed & are unremarkable except as noted in HPI and below PMFSH Past Medical History Medical History Anxiety Essential hypertension GERD (gastroesophageal reflux disease) Mixed hyperlipidemia Obesity Recurrent major depressive episodes, mild Sleep disorder Surgical History Surgical History History of elbow surgery bilateral History of esophagogastroduodenoscopy (EGD) 10/29/21 findings of nonerosive reflux disease History of hip replacement bilateral History of laparoscopic cholecystectomy 12/02/2021 - laparoscopic cholecystectomy Family History Family History Sibling Hypertension Diabetes mellitus Depression Father Cerebrovascular accident Heart disease Hypertension Diabetes mellitus Depression Mother Family history of malignant neoplasm of ovary, Onset Age: 58 Hypertension Gallbladder disease Other Family history of arthritis Family history of heart disease in male family member before age 55 Family history of malignant neoplasm Social History Social History Smoking status: Never smoker Smokeless tobacco user: chewing tobacco Second hand tobacco smoke exposure: No Additional smoking assessment comments: Chews tobacco daily with nicotine Alcohol intake: current Drinks per week: 3 Substance use: never Substance use type: does not use Living arrangements: with family Additional living arrangements comments: Lives with Occupation/Education: occupation 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, 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 Gender identity (if verbalized by the patient): Male Spiritual care concerns: No Meds Home Medications and Allergies Home Medications Medication Instructions Recorded Confirmed Type aspirin 81 mg tablet,delayed 81 mg PO DAILY 01/11/21 09/01/22 History release (Adult Low Dose Aspirin) fenofibrate nanocrystallized 145 145 mg PO DAILY #90 tabs 09/03/21 09/01/22 Rx mg tablet (Tricor) metoprolol succinate 50 mg 50 mg PO DAILY #90 tabs 09/03/21 09/01/22 Rx tablet,extended release 24 hr sertraline 100 mg tablet See Rx Instructions .Route 03/07/22 09/01/22 Rx .COMPLEX #90 ea ferrous fum 110 mg 1 cap PO DAILY 05/04/22 09/01/22 History [id number].factor-vit C-folic acid 0.5 mg capsule (Tricon) atorvastatin 20 mg tablet (Lipitor) 20 mg PO DAILY #90 tabs 05/24/22 09/01/22 Rx Allergies Allergy/AdvReac Type Severity Reaction Status Date / Time Penicillins Allergy Mild RASH Verified 09/01/22 11:37 Exam Const: General: alert Orientation/consciousness: patient oriented x3 Resp: Auscultation: clear to auscultation bilaterally Cardio: Rhythm: regular rhythm GI: GI Palp: Yes Soft to palpation and No Tenderness to palpation present (GI) Neuro: General: patient oriented x3 Assessment and Plan Assessment and plan (1) Change in bowel habits: Code(s): R19.4 - Change in bowel habit Status: Acute Assessment and Plan: Colonoscopy with possible biopsy or polypectomy or cautery or injection of substances.
--- NOTE | 2022-09-01 12:09 | WPDANESEPPF ---
Anes - Initial Pre Proc Eval Procedure: Operation Date: 09/01/22 12:30 Proposed Procedures p Diagnostic Colonoscopy - Tommy Fletcher MD Date/Time: 09/01/22 12:09 Surgeon: Tommy Fletcher MD Pre Op Diagnosis: Change in Bowel Habits Patient Data Age: 46 Gender: M Height: 1.91 m Weight: 114 kg Allergies Allergy/AdvReac Type Severity Reaction Status Date / Time Penicillins Allergy Mild RASH Verified 09/01/22 11:37 Home Medications Medication Instructions Recorded Confirmed Type aspirin 81 mg tablet,delayed 81 mg PO DAILY 01/11/21 09/01/22 History release (Adult Low Dose Aspirin) fenofibrate nanocrystallized 145 145 mg PO DAILY #90 tabs 09/03/21 09/01/22 Rx mg tablet (Tricor) metoprolol succinate 50 mg 50 mg PO DAILY #90 tabs 09/03/21 09/01/22 Rx tablet,extended release 24 hr sertraline 100 mg tablet See Rx Instructions .Route 03/07/22 09/01/22 Rx .COMPLEX #90 ea ferrous fum 110 mg 1 cap PO DAILY 05/04/22 09/01/22 History [id number].factor-vit C-folic acid 0.5 mg capsule (Tricon) atorvastatin 20 mg tablet (Lipitor) 20 mg PO DAILY #90 tabs 05/24/22 09/01/22 Rx Patient hx anesthesia problems: none Family hx anesthesia problems: none Results Review: All pre-operative results and documents have been reviewed as part of the pre-operative evaluation. [facility] Past Medical History Medical History Anxiety Essential hypertension GERD (gastroesophageal reflux disease) Mixed hyperlipidemia Obesity Recurrent major depressive episodes, mild Sleep disorder Surgical History Surgical History History of elbow surgery bilateral History of esophagogastroduodenoscopy (EGD) 10/29/21 findings of nonerosive reflux disease History of hip replacement bilateral History of laparoscopic cholecystectomy 12/02/2021 - laparoscopic cholecystectomy Family History Family History Sibling Hypertension Diabetes mellitus Depression Father Cerebrovascular accident Heart disease Hypertension Diabetes mellitus Depression Mother Family history of malignant neoplasm of ovary, Onset Age: 58 Hypertension Gallbladder disease Other Family history of arthritis Family history of heart disease in male family member before age 55 Family history of malignant neoplasm Social History Social History Smoking status: Never smoker Smokeless tobacco user: chewing tobacco Second hand tobacco smoke exposure: No Additional smoking assessment comments: Chews tobacco daily with nicotine Alcohol intake: current Drinks per week: 3 Substance use: never Substance use type: does not use Living arrangements: with family Additional living arrangements comments: Lives with Occupation/Education: occupation 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 Informed Consent: The patient's anesthetic plan and its attendant risks and benefits were discussed with the patient/family/POA. Questions were solicited and answers provided to the satisfaction of the patient/family/POA.
[2022-09-01] MEDS: LACTATED RINGERS 1,000 ML 150 ML IV CONT (12:14)
[2022-09-01 12:52] VITALS: BP 124/86; PULSE 68; RESP 16; O2SAT 97
[2022-09-01 13:02] VITALS: BP 112/83; PULSE 82; RESP 16; O2SAT 97
--- NOTE | 2022-09-01 13:08 | WPDANESPN ---
Anes - Prog Note Post-Op Date/Time: 09/01/22 13:08 Cardiovascular status: normal Respiratory status: normal Airway patency: baseline Mental status: baseline Post-Op hydration status: normal Pain Score (VAS): 0/10 I/O: Intake & Output 08/31/22 09/01/22 09/01/22 23:59 07:59 15:59 Intake Total 500 Balance 500 Patient Feedback: Patient satisfied with anesthetic care.
[2022-09-01 13:16] VITALS: BP 128/97; PULSE 64; RESP 16; O2SAT 98
--- NOTE | 2022-09-01 13:17 | SUR.PHASEII ---
PT AWAKE AND ALERT. EATING AND DRINKING. STATES NAUSEA IMPROVED. TALKATIVE.
== END 2022-09-01 13:33 | disposition home or self-care (01) ==
PROVIDERS: PCP Family Medicine; Visit Provider Internal Medicine Gastroenterology
PROC: 0DJD8ZZ Inspection of Lower Intestinal Tract, Via Natural or Artificial Opening Endoscopic (ICD-10-PCS; CPT 45378; principal; 2022-09-01 12:30)
DX: R19.4 Change in bowel habit (principal)
CPT/HCPCS: 45380

== ENCOUNTER 2022-10-15 08:30 | Emergency (ER) | payer OTHER, SELFPAY ==
--- NOTE | 2022-10-15 08:47 | ED.GENADULT ---
HPI - General Adult General Chief complaint: Upper Respiratory Infection Stated complaint: sore throat,stiff neck,cough Source: patient and RN notes reviewed History of Present Illness HPI narrative: 46-year-old male presents to urgent care with complaints of sore throat, achiness, and feeling run down. Patient states his symptoms all started last night. Patient states he helped his elderly neighbor get up from a fall on and found out Monday night the patient was positive for COVID. Patient reports a slight headache and some shortness of breath that he noticed when he was walking up the stairs. Patient denies any vomiting, diarrhea, chest pain, or ear pain. Patient has taken Aleve. Some parts of this dictation were generated by voice recognition software and may contain typographical and/or grammatical inaccuracies. Related Data Home Medications Medication Instructions Recorded Confirmed aspirin 81 mg tablet,delayed 81 mg PO DAILY 01/11/21 10/15/22 release (Adult Low Dose Aspirin) ferrous fum 110 mg 1 cap PO DAILY 05/04/22 10/15/22 [id number] C-folic acid 0.5 mg capsule (Tricon) Allergies Allergy/AdvReac Type Severity Reaction Status Date / Time Penicillins Allergy Mild RASH Verified 10/15/22 08:43 Review of Systems Review of Systems: Pertinent positives and pertinent negatives per HPI. [facility] Past Medical History Medical History Anxiety Essential hypertension GERD (gastroesophageal reflux disease) Mixed hyperlipidemia Obesity Recurrent major depressive episodes, mild Sleep disorder Surgical History Surgical History History of elbow surgery bilateral History of esophagogastroduodenoscopy (EGD) 10/29/21 findings of nonerosive reflux disease History of hip replacement bilateral History of laparoscopic cholecystectomy 12/02/2021 - laparoscopic cholecystectomy Family History Family History Sibling Hypertension Diabetes mellitus Depression Father Cerebrovascular accident Heart disease Hypertension Diabetes mellitus Depression Mother Family history of malignant neoplasm of ovary, Onset Age: 58 Hypertension Gallbladder disease Other Family history of arthritis Family history of heart disease in male family member before age 55 Family history of malignant neoplasm Social History Social History Smoking status: Never smoker Smokeless tobacco user: chewing tobacco Second hand tobacco smoke exposure: No Additional smoking assessment comments: Chews tobacco daily with nicotine Alcohol intake: current Drinks per week: 3 Substance use: never Substance use type: does not use Living arrangements: with family Additional living arrangements comments: Lives with Occupation/Education: 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 There is no relevant family history pertinent to the patient complaint. Exam Narrative: GENERAL: This is a well-nourished, well-developed patient, in no apparent distress. HEAD: normocephalic, atraumatic. EYES: PERRL. Sclera clear/white. Vision is grossly intact. EARS: External ears normal, auditory canals clear and without drainage, TMs normal without perforation. Hearing grossly intact. NOSE: External nose normal with no obvious nasal discharge, nares without redness, no rhinorrhea. THROAT: Mucous membranes moist, posterior pharynx clear. NECK: Neck supple, non-tender without lymphadenopathy, masses or thyromegaly. Negative for Kernig sign. [facility]
[2022-10-15 08:52] VITALS: BP 125/89; PULSE 71; RESP 16; TEMP 36.3; O2SAT 100
== END 2022-10-15 09:06 | disposition home or self-care (01) ==
PROVIDERS: Emergency Provider Nurse Practitioner Family; PCP Family Medicine
DX: B34.9 Viral infection, unspecified (principal); J02.9 Acute pharyngitis, unspecified; F17.220 Nicotine dependence, chewing tobacco, uncomplicated; I10 Essential (primary) hypertension; E78.2 Mixed hyperlipidemia; K21.9 Gastro-esophageal reflux disease without esophagitis; E66.9 Obesity, unspecified; Z68.31 Body mass index [BMI] 31.0-31.9, adult; Z96.643 Presence of artificial hip joint, bilateral; F41.9 Anxiety disorder, unspecified; Z79.82 Long term (current) use of aspirin
CPT/HCPCS: 87081; 87880; 99213; G0463

== ENCOUNTER 2023-03-24 16:54 | Emergency (ER) | payer OTHER, SELFPAY ==
[2023-03-24 17:19] VITALS: BP 138/84; PULSE 71; RESP 16; TEMP 36.8; O2SAT 100
--- NOTE | 2023-03-24 18:22 | ED.URI ---
HPI - URI/Sore Throat General Chief Complaint: Upper Respiratory Infection Stated Complaint: Cough/Fever Time Seen by Provider: 03/24/23 18:13 Source: patient and RN notes reviewed Mode of arrival: ambulatory Limitations: no limitations History of Present Illness HPI Narrative: Patient presents today complaining of an 8 day history of fatigue, intermittent cough, body aches, sweats, sore throat, subjective fever. Denies shortness of breath. He has been taking [id number] medication without much relief. was diagnosed with strep throat today. Related Data Home Medications Medication Instructions Recorded Confirmed aspirin 81 mg tablet,delayed 81 mg PO DAILY 01/11/21 01/16/23 release (Adult Low Dose Aspirin) Allergies Allergy/AdvReac Type Severity Reaction Status Date / Time Penicillins Allergy Mild RASH Verified 03/24/23 17:32 Review of Systems Review of Systems: CONSTITUTIONAL: Denies chills. + body aches, sweats, subjective fever, fatigue EYES: Denies visual changes, redness, or discharge. ENT: Denies rhinorrhea, congestion, or otalgia.+ sore throat CARDIOVASCULAR: Denies chest pain, palpitations, or edema. RESPIRATORY: Denies dyspnea.+ cough GASTROINTESTINAL: Denies abdominal pain, nausea, vomiting, or diarrhea. GENITOURINARY: Denies dysuria or hematuria. SKIN: Denies rash, itching, or wounds. MUSCULOSKELETAL: Denies back pain, joint pain, or myalgia. NEUROLOGIC: Denies headache, numbness, tingling, or weakness. PSYCH: Denies depression or anxiety. [facility] Past Medical History Medical History Anxiety Essential hypertension GERD (gastroesophageal reflux disease) Mixed hyperlipidemia Obesity Recurrent major depressive episodes, mild Sleep disorder Surgical History Surgical History History of elbow surgery bilateral History of esophagogastroduodenoscopy (EGD) 10/29/21 findings of nonerosive reflux disease History of hip replacement bilateral History of laparoscopic cholecystectomy 12/02/2021 - laparoscopic cholecystectomy Family History Family History Sibling Hypertension Diabetes mellitus Depression Father Cerebrovascular accident Heart disease Hypertension Diabetes mellitus Depression Mother Family history of malignant neoplasm of ovary, Onset Age: 58 Hypertension Gallbladder disease Other Family history of arthritis Family history of heart disease in male family member before age 55 Family history of malignant neoplasm Social History Social History Smoking status: Never smoker Smokeless tobacco user: chewing tobacco Second hand tobacco smoke exposure: No Additional smoking assessment comments: Chews tobacco daily with nicotine Alcohol intake: current Drinks per week: 3 Substance use: never Substance use type: does not use Lack of Transportation: No Lack of Food: Never True Current Housing: I Have Housing Concerned About Future Housing: No Difficulty Paying Gas/Electric Bills: No Difficulty Paying for Meds: No Currently Unemployed: No Difficulty w/ Childcare or Family Care: No Living arrangements: with family Additional living arrangements comments: Lives with Occupation/Education: occupation 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 Please see nursing chart for further information. There is no relevant family history pertinent to the presenting complaint Exam Narrative: GENERAL: Mildly ill-appearing, well-nouris
== END 2023-03-24 18:37 | disposition home or self-care (01) ==
PROVIDERS: Emergency Provider Nurse Practitioner; PCP Family Medicine
DX: J06.9 Acute upper respiratory infection, unspecified (principal); I10 Essential (primary) hypertension; K21.9 Gastro-esophageal reflux disease without esophagitis; E78.2 Mixed hyperlipidemia; E66.9 Obesity, unspecified; Z68.31 Body mass index [BMI] 31.0-31.9, adult; F17.220 Nicotine dependence, chewing tobacco, uncomplicated; Z20.822 Contact with and (suspected) exposure to COVID-19
CPT/HCPCS: 87081; 87426; 87804; 87880; 99213; C9803; G0463

== ENCOUNTER 2023-11-07 10:43 | Outpatient (CLI) | payer OTHER, SELFPAY ==
--- NOTE | ~2023-11-07 | US_ITS ---
EXAMINATION: US soft tissue groin RT DATE: 11/07/2023 11:00 INDICATION: Right groin pain. TECHNIQUE: Multiple grayscale and Doppler ultrasound images of the right groin were obtained. COMPARISON: CT abdomen and pelvis 06/13/2022 FINDINGS: There is no abnormal mass, lymphadenopathy, or hernia in right groin in the patient's area of concern. IMPRESSION: 1. No abnormality in right groin in the patient's area of concern. Reviewed, dictated and finalized at location E.
== END 2023-11-07 10:44 ==
LOC: GOSHIMG 10:44
PROVIDERS: PCP Family Medicine; Visit Provider Family Medicine
DX: R10.31 Right lower quadrant pain (principal)
CPT/HCPCS: 76882